=== PATIENT | male | born 1995 | race Caucasian/White ===

== ENCOUNTER → 2017-09-28 | Day surgery (SDC) | payer OTHER ==
--- NOTE | 2017-09-28 10:28 | RADIOLOGY REPORT (SQ) ---
EXAM DESCRIPTION: ARTHRO SHOULDER INJECTION; FLUORO/NEEDLE PLACEMENT COMPLETED DATE/TIME: 09/28/2017 10:14 am REASON FOR STUDY: SUPERIOR GLENOID LABRUM LESION OF RIGHT SHOULDER, SUBS S43.431D SUPERIOR GLENOID LABRUM LESION OF RIGHT SHOULDER, S COMPARISON: None. FLUOROSCOPY TIME: 20 seconds 1 images saved to PACS. LIMITATIONS: None. PROCEDURE: Procedure, risks, benefits and alternatives explained to patient who then gave written co nsent. The right shoulder was marked and a time out was called for correct procedure verification. P osterior entry site marked using fluoroscopic guidance. Shoulder prepped and draped using sterile te chnique. Local anesthesia achieved using 1% lidocaine injection. Hypodermic needle introduced into the joint space under direct fluoroscopic visualization. Non-ionic contrast instilled to confirm intr a-articular position. Dilute gadolinium solution then injected. Needle removed and entry site covere d with sterile bandage. No immediate complications noted. TECHNIQUE: Digital images acquired during fluoroscopy and stored on PACS. Patient immediately take n to the MR suite for additional imaging. INJECTION LOCATION: Posterior right shoulder. CONTRAST TYPE AND AMOUNT: 1 cc Isovue 7 cc lidocaine 10 cc Prohance/Saline mixture. IMPRESSION: SUCCESSFUL NEEDLE PLACEMENT AND INJECTION FOR RIGHT SHOULDER MR ARTHROGRAM USING POSTERI OR APPROACH. COMMENT: Quality ID 145: Final reports for procedures using fluoroscopy that document radiation exp osure indices, or exposure time and number of fluorographic images (if radiation exposure indices are not available) TECHNICAL DOCUMENTATION: JOB ID: [id number] [employer]- All Rights Reserved Reading location - IP/workstation name: [facility] [email or web address]
--- NOTE | 2017-09-28 10:28 | RADIOLOGY REPORT (SQ) ---
EXAM DESCRIPTION: ARTHRO SHOULDER INJECTION; FLUORO/NEEDLE PLACEMENT COMPLETED DATE/TIME: 09/28/2017 10:14 am REASON FOR STUDY: SUPERIOR GLENOID LABRUM LESION OF RIGHT SHOULDER, SUBS S43.431D SUPERIOR GLENOID LABRUM LESION OF RIGHT SHOULDER, S COMPARISON: None. FLUOROSCOPY TIME: 20 seconds 1 images saved to PACS. LIMITATIONS: None. PROCEDURE: Procedure, risks, benefits and alternatives explained to patient who then gave written co nsent. The right shoulder was marked and a time out was called for correct procedure verification. P osterior entry site marked using fluoroscopic guidance. Shoulder prepped and draped using sterile te chnique. Local anesthesia achieved using 1% lidocaine injection. Hypodermic needle introduced into the joint space under direct fluoroscopic visualization. Non-ionic contrast instilled to confirm intr a-articular position. Dilute gadolinium solution then injected. Needle removed and entry site covere d with sterile bandage. No immediate complications noted. TECHNIQUE: Digital images acquired during fluoroscopy and stored on PACS. Patient immediately take n to the MR suite for additional imaging. INJECTION LOCATION: Posterior right shoulder. CONTRAST TYPE AND AMOUNT: 1 cc Isovue 7 cc lidocaine 10 cc Prohance/Saline mixture. IMPRESSION: SUCCESSFUL NEEDLE PLACEMENT AND INJECTION FOR RIGHT SHOULDER MR ARTHROGRAM USING POSTERI OR APPROACH. COMMENT: Quality ID 145: Final reports for procedures using fluoroscopy that document radiation exp osure indices, or exposure time and number of fluorographic images (if radiation exposure indices are not available) TECHNICAL DOCUMENTATION: JOB ID: [id number] [employer]- All Rights Reserved Reading location - IP/workstation name: [facility]-[email or web address]
--- NOTE | 2017-09-28 11:13 | RADIOLOGY REPORT (SQ) ---
EXAM DESCRIPTION: MRI RT UPPER JOINT WITH COMPLETED DATE/TIME: 09/28/2017 10:43 am REASON FOR STUDY: SUPERIOR GLENOID LABRUM LESION OF RIGHT SHOULDER, SUBS S43.431D SUPERIOR GLENOID LABRUM LESION OF RIGHT SHOULDER, S COMPARISON: None. TECHNIQUE: Right shoulder images acquired and stored on PACS. Oblique coronal, oblique sagittal, and axial imaging to include fat sensitive sequences as T1, water sensitive sequences as FST2/STIR, and contrast sensitive sequences as FST1. LIMITATIONS: None. FINDINGS: JOINT DISTENTION: Adequate distention for interpretation. No contrast in the subacromial bursa. BONE MARROW AND CORTEX: Normal. No significant osteophytes. No edema or defects. AC JOINT: Type II acromion. No significant AC joint arthropathy. GLENOHUMERAL JOINT: Intact. Suture anchors in the glenoid. ROTATOR CUFF: Diffuse tendinosis with fraying of the articular surface of the supraspinatus. No full -thickness tear. Rotator interval intact. LABRUM AND BICEPS LABRAL COMPLEX: Increased signal following the contour of the glenoid in the superi or labrum most likely sublabral recess. Intra and extra-articular biceps not visualized, presumably due to tenotomy. INFERIOR LABRAL COMPLEX: Intact. ADJACENT SOFT TISSUES: No masses or nodes. OTHER: No other significant finding. IMPRESSION: Postsurgical changes from labral repair and biceps tenotomy. No recurrent labral tear i dentified. Cuff tendinosis with fraying of the articular surface of the supraspinatus. No full-thic kness tear. TECHNICAL DOCUMENTATION: JOB ID: [id number] [employer]- All Rights Reserved Reading location - IP/workstation name: [facility]
== END ==
LOC: RAD 09:44 → EDSTATUS 10:00
PROVIDERS: ATTEND Physician Assistant
DX: S43.431D Superior glenoid labrum lesion of right shoulder, subsequent encounter (principal); X58.XXXD Exposure to other specified factors, subsequent encounter
CPT/HCPCS: 23350; 77002

== ENCOUNTER → 2017-10-15 | Day surgery (SDC) | payer OTHER ==
--- NOTE | 2017-10-15 10:41 | RADIOLOGY REPORT (SQ) ---
EXAM DESCRIPTION: ARTHRO HIP INJ W/ANESTHESIA; FLUORO/NEEDLE PLACEMENT COMPLETED DATE/TIME: 10/15/2017 10:25 am REASON FOR STUDY: R GROIN PAIN,LABRAL TEAR COMPARISON: None. FLUOROSCOPY TIME: 10 seconds 1 digital radiographic images saved to PACS. LIMITATIONS: None. PROCEDURE: Procedure, risks, benefits and alternatives explained to patient who then gave written c onsent. The right hip was marked and a time-out was called for correct marking verification. Entry site marked using fluoroscopic guidance. Hip prepped and draped using sterile technique. Local ane sthesia achieved using 6 mL of 1% lidocaine injection. 22 gauge spinal needle introduced into the benoit int space under direct fluoroscopic visualization. Non-ionic contrast instilled to confirm intra-art icular position. Dilute gadolinium solution then injected. Needle removed and entry site covered w ith sterile bandage. No immediate complications noted. TECHNIQUE: Digital images acquired during fluoroscopy and stored on PACS. Patient immediately take n to the MR suite for additional imaging. INJECTION LOCATION: Right hip joint space CONTRAST TYPE AND AMOUNT: 1 mL of Isovue-300 was used to confirm intra-articular needle placement, fo llowed by injection of 10 mL Prohance/Saline mixture. IMPRESSION: SUCCESSFUL NEEDLE PLACEMENT AND INJECTION FOR RIGHT HIP MR ARTHROGRAM. COMMENT: Quality ID 145: Final reports for procedures using fluoroscopy that document radiation exp osure indices, or exposure time and number of fluorographic images (if radiation exposure indices are not available) TECHNICAL DOCUMENTATION: JOB ID: [id number] [employer]- All Rights Reserved Reading location - IP/workstation name: [facility]-RR
--- NOTE | 2017-10-15 10:41 | RADIOLOGY REPORT (SQ) ---
EXAM DESCRIPTION: ARTHRO HIP INJ W/ANESTHESIA; FLUORO/NEEDLE PLACEMENT COMPLETED DATE/TIME: 10/15/2017 10:25 am REASON FOR STUDY: R GROIN PAIN,LABRAL TEAR COMPARISON: None. FLUOROSCOPY TIME: 10 seconds 1 digital radiographic images saved to PACS. LIMITATIONS: None. PROCEDURE: Procedure, risks, benefits and alternatives explained to patient who then gave written c onsent. The right hip was marked and a time-out was called for correct marking verification. Entry site marked using fluoroscopic guidance. Hip prepped and draped using sterile technique. Local ane sthesia achieved using 6 mL of 1% lidocaine injection. 22 gauge spinal needle introduced into the benoit int space under direct fluoroscopic visualization. Non-ionic contrast instilled to confirm intra-art icular position. Dilute gadolinium solution then injected. Needle removed and entry site covered w ith sterile bandage. No immediate complications noted. TECHNIQUE: Digital images acquired during fluoroscopy and stored on PACS. Patient immediately take n to the MR suite for additional imaging. INJECTION LOCATION: Right hip joint space CONTRAST TYPE AND AMOUNT: 1 mL of Isovue-300 was used to confirm intra-articular needle placement, fo llowed by injection of 10 mL Prohance/Saline mixture. IMPRESSION: SUCCESSFUL NEEDLE PLACEMENT AND INJECTION FOR RIGHT HIP MR ARTHROGRAM. COMMENT: Quality ID 145: Final reports for procedures using fluoroscopy that document radiation exp osure indices, or exposure time and number of fluorographic images (if radiation exposure indices are not available) TECHNICAL DOCUMENTATION: JOB ID: [id number] [employer]- All Rights Reserved Reading location - IP/workstation name: [facility] [place]-[facility]
--- NOTE | 2017-10-15 15:52 | RADIOLOGY REPORT (SQ) ---
EXAM DESCRIPTION: MRI RT LOWER JOINT WITH COMPLETED DATE/TIME: 10/15/2017 11:07 am REASON FOR STUDY: R GROIN PAIN, LABRAL TEAR COMPARISON: None. TECHNIQUE: Post arthrogram imaging is performed using T1 and T1 and T2 fat saturated sequences of th e pelvis and specific hip of interest. LIMITATIONS: None. FINDINGS: RIGHT HIP JOINT DISTENSION: Adequate. No loose body. BONE MARROW: No edema. No marrow replacement. FEMORAL HEAD, NECK, AND ACETABULUM: No occult fracture. No osteophytes or subchondral cysts. Normal s phericity of femoral head/neck junction. No acetabular dysplasia. No evidence of femoroacetabular imp ingement. LABRUM AND CARTILAGE: No labral tear. Cartilage of normal thickness without delamination. PUBIC RAMI AND ISCHIUM: No occult fracture. SACRUM AND PAULIE: SI joints normal in signal. No occult fracture. EFFUSIONS: None. MUSCLES AND SOFT TISSUES: Adductors and piriformis normal. Abductors and greater trochanteric bursa n ormal without edema or fluid. Iliopsoas bursa without fluid. Hamstring attachments without edema or t ear. PELVIC SOFT TISSUES: No masses or adenopathy. SCIATIC NERVE: Identified without masses. OTHER: No other significant finding. IMPRESSION: NORMAL MRI ARTHROGRAM OF THE HIP. TECHNICAL DOCUMENTATION: JOB ID: [id number] [email or web address]- All Rights Reserved Reading location - IP/workstation name: [facility]
== END ==
LOC: RAD 09:36
PROVIDERS: ATTEND Orthopaedic Surgery
DX: S73.191A Other sprain of right hip, initial encounter (principal); X58.XXXA Exposure to other specified factors, initial encounter
CPT/HCPCS: 73722; 77002; 27095; A9576

== ENCOUNTER → 2018-07-14 | Outpatient (CLI) | payer OTHER ==
--- NOTE | 2018-07-14 16:42 | RADIOLOGY REPORT (SQ) ---
EXAM DESCRIPTION: HAND BILATERAL 3 VIEWS COMPLETED DATE/TIME: 07/14/2018 3:46 pm REASON FOR STUDY: BILATERAL HAND PAIN COMPARISON: None. EXAM PARAMETERS: NUMBER OF VIEWS: Three views. TECHNIQUE: AP, lateral and oblique radiographic images acquired of the right and left hand. LIMITATIONS: None. FINDINGS: MINERALIZATION: Normal. BONES: No acute fracture or dislocation. No worrisome bone lesions. No significant osteophytes. JOINTS: No erosions. No kiran-articular osteopenia. No chondrocalcinosis. SOFT TISSUES: No swelling. No calcifications. OTHER: No other significant finding. IMPRESSION: 1. No evidence of acute bony abnormality. 2. No evidence of erosive or productive disease. TECHNICAL DOCUMENTATION: JOB ID: [id number] [employer]- All Rights Reserved Reading location - IP/workstation name: [email or web address]
== END ==
LOC: RAD 15:17
PROVIDERS: ATTEND Student in an Organized Health Care Education/Training Program
DX: M79.642 Pain in left hand (principal); M79.641 Pain in right hand